=== PATIENT | female | born 1965 | race Caucasian/White ===

== ENCOUNTER 2017-12-24 22:26 | Emergency (ER) | payer OTHER ==
[2017-12-24 22:34] VITALS: BP 122/89
[2017-12-24] MEDS ORDERED: IBUPROFEN 200 MG TAB PO ONE (23:21)
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
== END 2017-12-25 00:17 | disposition home or self-care (01) ==
DX: S80.12XA Contusion of left lower leg, initial encounter (principal); F10.929 Alcohol use, unspecified with intoxication, unspecified; F17.200 Nicotine dependence, unspecified, uncomplicated; Z85.3 Personal history of malignant neoplasm of breast